=== PATIENT | female | born 1985 | race African-American/Black ===

== ENCOUNTER 2024-01-12 18:17 | Emergency (ER) | payer SELFPAY ==
[~2024-01-12] VITALS: Ht 177.8 cm; Wt 82.0 kg
[2024-01-12 18:23] VITALS: BP 149/100; PULSE 95; RESP 16; TEMP 98.6; O2SAT 99
== END 2024-01-12 18:59 | disposition left against medical advice (07) ==
LOC: ER 18:17
DX: R32 Unspecified urinary incontinence (principal)
CPT/HCPCS: 99283